=== PATIENT | female | born 1945 | race Caucasian/White ===

== ENCOUNTER 2018-12-22 10:19 | Day surgery (SDC) | payer MEDICARE, OTHER ==
[~2018-12-22] VITALS: Ht 160 cm; Wt 50.6 kg
[2018-12-22 10:41] VITALS: Ht 160 cm; Wt 50.6 kg
[2018-12-22] MEDS ORDERED: GABA400C PO (10:47)
[2018-12-22] MEDS ORDERED: ALEVE PRN (10:47)
[2018-12-22 10:50] VITALS: BP 131/70; PULSE 112; RESP 20
--- NOTE | 2018-12-22 11:05 | PREAC ---
Date/Time of Note Date/Time of Note DATE: 12/22/18 TIME: 11:04 Anesthesia Eval and Record Evaluation Time Pre-Procedure Interview DATE: 12/22/18 TIME: 11:04 Age 72 Sex female NPO: 8 hrs Preoperative diagnosis POSITIVE OCCULT BLOOD, CHANGE IN BOWEL HABITS Planned procedure COLONOSCOPY Past Medical History Past Medical History: None Surgery & Anesthesia Issues No known issue Meds Anticoagulation: No Beta Brett within 24 hr: No Reason Beta Brett not given: Pt. not on B-Brett Reported Medications Gabapentin* (Neurontin*) 400 Mg Capsule, 400 MG PO TID, #90 CAP 12/22/18 [Aleve Prn] No Conflict Check 12/22/18 Meds reviewed: Yes Allergies Coded Allergies: No Known Drug Allergies (Verified Allergy, Unknown, 12/22/18) Allergies Reviewed: Yes Labs/Studies Labs Reviewed: Reviewed by anesthesiologist test: N/A Pre-procedure Exam Last vitals Vital Signs Date Temp Pulse Resp B/P (MAP) Pulse Ox O2 O2 Flow FiO2 Time Delivery Rate 12/22/18 98.1 112 20 131/70 98 Room Air 10:50 (90) Airway: Adequate mouth opening, Adequate thyromental dist Mallampati: Mallampati II Teeth: Normal Lung: Normal Heart: Normal ASA Physical Status ASA physical status: 1 Emergency: None Planned Anesthetic General/MAC: MAC Planned Pain Management Parenteral pain med Pre-operative Attestations Prior to commencing anesthesia and surgery, the patient was re-evaluated, there was verification of: *The patient's identity *The results of appropriate recent lab work and preoperative vital signs *The above evaluation not changing prior to induction *Anesthetic plan, risk benefits, alternative and complications discussed with patient/family; questions answered; patient/family understands, accepts and wishes to proceed. Bang Reed M.D. Dec 22, 2018 11:05
[2018-12-22] MEDS ORDERED: PROPOFOL 200 MG INJ ONE (11:07)
[2018-12-22] MEDS ORDERED: LIDOCAINE 100 MG SYRINGE ONE (11:07)
[2018-12-22] MEDS ORDERED: PROPOFOL 20 ML ONE (11:07)
--- NOTE | 2018-12-22 11:51 | PAC ---
Date/Time of Note Date/Time of Note DATE: 12/22/18 TIME: 11:51 Post-Anesthesia Notes Post-Anesthesia Note Last documented vital signs Vital Signs Date Temp Pulse Resp B/P (MAP) Pulse Ox O2 O2 Flow FiO2 Time Delivery Rate 12/22/18 98.1 112 20 131/70 98 Room Air 10:50 (90) Activity: WNL Respiratory function: WNL Cardiovascular function: WNL Mental status: Baseline Pain reasonably controlled: Yes Hydration appropriate: Yes Nausea/Vomiting absent: Yes Bang Reed M.D. Dec 22, 2018 11:51
[2018-12-22 12:26] VITALS: BP 131/95; RESP 14
== END 2018-12-22 13:10 | disposition home or self-care (01) ==
LOC: GIL 10:19
PROVIDERS: ATTEND Internal Medicine Gastroenterology
DX: K92.1 Melena (principal); D12.6 Benign neoplasm of colon, unspecified; K64.8 Other hemorrhoids
CPT/HCPCS: 45380; 88305; J2001